=== PATIENT | male | born 1995 | race Caucasian/White ===

== ENCOUNTER 2018-09-01 09:51 | Emergency (ER) | payer BC ==
[2018-09-01] MEDS ORDERED: NS 0.9% 1000 ML** 1,000 ML IV ONE ×2 (10:10→10:16)
[2018-09-01] MEDS ORDERED: Ondansetron INJ* 2 MG/ML VIAL IV ONE (10:16)
[2018-09-01] MEDS ORDERED: Famotidine TAB* 20 MG PO ONE (10:16)
--- NOTE | 2018-09-01 10:16 | ED ---
Complex/Multi-Sys Presentation - HPI Summary HPI Summary: Pt is a 22 y/o male who presents to the ED c/o generalized weakness. He was attacked by a dog on 08/25/18 and was placed on Augmentin and scheduled to have a rabies vaccine series. Pt was drinking heavily while taking the antibiotic for several days. His last dose of Augmentin was yesterday, and his last alcoholic beverage was 2 days ago. On the plane back, he began to have numbness , nausea, shaking, and a hot and cold sensation. He denies any vomiting, CP, or SOB. Pt had to get medical attention on the plane and was told his symptoms were due to mixing Augmentin with alcohol. He then began to have generalized weakness but is still able to move all extremities. Pt denies any drug known use , but states he is unsure because he blacked out. - History Of Current Complaint Chief Complaint: EDWeakness Time Seen by Provider: 09/01/18 10:09 Hx Obtained From: Patient Onset/Duration: Gradual Onset, Lasting Days - Yesterday, Still Present Timing: Constant Aggravating Factor(s): Mixing Augmentin with alcohol Alleviating Factor(s): Nothing Associated Signs And Symptoms: Positive: Weakness, Nausea, Other - Numbness, shaking. Negative: SOB, Chest Pain, Vomiting Related History: Recent Illness - dogbite - on Augmentin - Allergies/Home Medications Allergies/Adverse Reactions: Allergies Allergy/AdvReac Type Severity Reaction Status Date / Time No Known Allergies Allergy Verified 08/25/18 16:22 PMH/Surg Hx/FS Hx/Imm Hx Endocrine/Hematology History: Denies: Hx Diabetes Cardiovascular History: Denies: Hx Hypertension - Surgical History Surgery Procedure, Year, and Place: L wrist surgery Infectious Disease History: No Infectious Disease History: Denies: Traveled Outside the [place] in Last 30 Days - Family History Known Family History: Positive: Other - R&NC - Social History Alcohol Use: Occasionally Hx Substance Use: No Substance Use Type: Reports: None Hx Tobacco Use: No Smoking Status (MU): Never Smoked Tobacco Review of Systems Positive: Chills - shaking, hot/cold sensation Negative: Chest Pain Negative: Shortness Of Breath Positive: Nausea. Negative: Vomiting Positive: Weakness - generalized, Numbness All Other Systems Reviewed And Are Negative: Yes Physical Exam - Summary Physical Exam Summary: Appearance: well appearing, mild pain distress, fatigued Skin: warm, dry, reflects adequate perfusion, healing dog bite wounds to face Head/face: normal Eyes: EOMI, SEAN ENT: mucous membranes moist Neck: supple, non-tender Respiratory: CTA, breath sounds present Cardiovascular: RRR, pulses symmetrical Abdomen: non-tender, soft Bowel Sounds: present Musculoskeletal: normal, strength/ROM intact Neuro: normal, sensory motor intact, A&Ox3 Triage Information Reviewed: Yes Vital Signs On Initial Exam: Initial Vitals Temp Pulse Resp BP Pulse Ox 97.2 F 58 18 135/84 100 09/01/18 09:56 09/01/18 09:56 09/01/18 09:56 09/01/18 09:56 09/01/18 09:56 Vital Signs Reviewed: Yes Procedures - Procedure Summary Procedure Summary: Suture removal: 1 Nylon suture removed in the left chin. Diagnostics - Vital Signs Vital Signs Temp Pulse Resp BP Pulse Ox 09/01/18 09:56 97.2 F 58 18 135/84 100 - Laboratory Result Diagrams: 09/01/18 10:45 09/01/18 10:45 Lab Statement: Any lab studies that have been ordered have been reviewed, and results considered in the medical decision making process. Re-Evaluation - Re-Evaluation First Eval Re-Evaluation Time: 11:20 Change: Improved Comment: Pt feels much better. Complex Multi-Symp Course/Dx Course Of Treatment: Nurse's notes reviewed. Patient feeling poorly, lightheaded and weak all over after several days drinking and [place]. Also has been on Augmentin for recent dog bite to the face. The wound is well- healing and a single suture was removed from it. We'll discontinue his Augmentin. He felt much better after 2 bags of IV fluids. All laboratories were benign. Discharged in good condition to follow-up with [facility]. - Diagnoses Differential Diagnoses/HQI/PQRI: Metabolic Abnormality, Sepsis Provider Diagnoses: Dehydration, Medication side effect, Visit for suture removal Discharge - Sign-Out/Discharge Documenting (check all that apply): Patient Departure - Discharge Patient Received Moderate/Deep Sedation with Procedure: No - Discharge Plan Condition: Improved Disposition: HOME Prescriptions: raNITIdine HCl [Ranitidine HCl] 150 mg PO BID PRN #30 cap PRN Reason: stomach upset Patient Education Materials: Dehydration (ED) Referrals: [facility] @ [Outside] No Primary Care Phys,NOPCP [Primary Care Provider] - Additional Instructions: Discontinue Augmentin. Stay well hydrated with Gatorade G2. Prescribed medication is to help settle here belly. Avoid alcohol. Follow-up with [facility] at . Return if worse, new symptoms or other concerns. - Billing Disposition and Condition Condition: IMPROVED Disposition: Home - Attestation Statements Document Initiated by Jeromyibjeffery: Yes Documenting Scribe: Madeline Melendez Provider For Whom Toni is Documenting (Include Credential): Cholo [place] MD Scribe Attestation: Madeline Velez, scribed for Cholo [place] MD on 09/01/18 at 1132. Scribe Documentation Reviewed: Yes Provider Attestation: The documentation as recorded by the Madeline white accurately reflects the service I personally performed and the decisions made by me, Cholo [place] MD Status of Scribe Document: Viewed
[2018-09-01 11:00] LABS: ABS Basophils 0 10^3/ul (0-0.2); ABS Eosinophils 0 10^3/ul (0-0.6); ABS Lymphocytes 1.3 10^3/ul (1.0-4.8); ABS Monocytes 0.3 10^3/ul (0-0.8); ABS Neutrophils 2.3 10^3/ul (1.5-7.7); ABS Nucleated RBC 0 10^3/ul; Eosinophil % 1.1 %; Hematocrit 42 % (36-46); Hemoglobin 15.1 g/dL (14.0-18.0); Lymphocyte % 33.4 %; Mean Corpuscular HGB Conc 36 g/dL (31-36); Mean Corpuscular Hemoglobin 32 pg (27-31); Mean Corpuscular Volume 88 fL (80-94); Mean Platelet Volume 7.6 fL (7.4-10.4); Nucleated Red Blood Cells % 0.1; Platelet Count 195 10^3/uL (150-450); Red Blood Count 4.79 10^6 /uL (4.18-5.48); Red Cell Distribution Width 12 % (10.5-15)
[2018-09-01 11:10] LABS: BUN/Creatinine Ratio 10.9 (8-20); C Reactive Protein 1.82 mg/L (<8.01); Calcium 9.1 mg/dL (8.6-10.3); EGFR African American 100.4 (>60); Potassium 3.7 mmol/L (3.5-5.0)
[2018-09-01 12:22] VITALS: BP 118/74
== END 2018-09-01 12:20 | disposition home or self-care (01) ==
LOC: ED 09:51
DX: E86.0 Dehydration (principal); R53.1 Weakness; T36.0X5A Adverse effect of penicillins, initial encounter; F10.10 Alcohol abuse, uncomplicated; Y92.9 Unspecified place or not applicable; S01.81XD Laceration without foreign body of other part of head, subsequent encounter; W54.0XXD Bitten by dog, subsequent encounter
CPT/HCPCS: 36415; 80048; 82550; 83690; 85025; 86140; 96361; 96374; 99283; A9270-GY; J2405

== ENCOUNTER 2018-09-02 12:46 | Emergency (ER) | payer BC ==
[2018-09-02] MEDS ORDERED: LORazepam TAB(*) 1 MG PO ONE (13:21)
--- NOTE | 2018-09-02 13:32 | ED ---
Psychiatric Complaint - HPI Summary HPI Summary: This patient is a 22-year-old male who is being seen for rabies vaccinations after a dog bite presenting to the ED for extreme anxiety symptoms just before receiving his rabies vaccination. He states he was at the counter and developed a feeling of severe anxiety with tingling throughout the bilateral hands. He denies any other symptoms including CPK, SOB, diaphoresis, fevers, chills, abdominal pain, nausea, diarrhea. He states he has been going through a lot recently with the concern for rabies. He states he was also in [place] over the weekend, getting back to [facility] or 3 days ago and states he may have had cocaine laced with something else. - History Of Current Complaint Chief Complaint: EDGeneral Time Seen by Provider: 09/02/18 12:59 Hx Obtained From: Patient Onset/Duration: Sudden Onset Timing: Constant Severity Initially: Severe Severity Currently: Severe Character: Anxious Aggravating Factor(s): Recent Stress Alleviating Factor(s): Nothing Associated Signs And Symptoms: Positive: Negative - Risk Factor(s) Completed Suicide Risk Factors: Negative - Allergies/Home Medications Allergies/Adverse Reactions: Allergies Allergy/AdvReac Type Severity Reaction Status Date / Time No Known Allergies Allergy Verified 09/02/18 13:02 PMH/Surg Hx/FS Hx/Imm Hx Previously Healthy: Yes Endocrine/Hematology History: Denies: Hx Diabetes Cardiovascular History: Denies: Hx Hypertension - Surgical History Surgery Procedure, Year, and Place: L wrist surgery - Immunization History Hx Pertussis Vaccination: No Immunizations Up to Date: Yes Infectious Disease History: No Infectious Disease History: Denies: Traveled Outside the [place] in Last 30 Days - Family History Known Family History: Positive: Other - R&NC - Social History Occupation: Employed Full-time, Student Lives: With Family Alcohol Use: Occasionally Hx Substance Use: No Substance Use Type: Reports: Marijuana Hx Tobacco Use: No Smoking Status (MU): Never Smoked Tobacco Review of Systems Constitutional: Negative Negative: Fever, Chills, Fatigue, Skin Diaphoresis Negative: Epistaxis, Dental Pain Negative: Palpitations, Chest Pain Genitourinary: Negative Positive: no symptoms reported, see HPI Musculoskeletal: Negative Skin: Negative Neurological: Negative Positive: Anxious All Other Systems Reviewed And Are Negative: Yes Physical Exam Triage Information Reviewed: Yes Vital Signs On Initial Exam: Initial Vitals Temp Pulse Resp BP Pulse Ox 99.4 F 71 18 133/81 100 09/02/18 12:51 09/02/18 12:51 09/02/18 12:51 09/02/18 12:51 09/02/18 12:51 Vital Signs Reviewed: Yes Appearance: Positive: Well-Appearing, Well-Nourished Skin: Positive: Warm, Skin Color Reflects Adequate Perfusion Head/Face: Positive: Normal Head/Face Inspection Eyes: Positive: EOMI, Conjunctiva Clear Neck: Positive: No Lymphadenopathy Respiratory/Lung Sounds: Positive: Clear to Auscultation, Breath Sounds Present Cardiovascular: Positive: RRR, Pulses are Symmetrical in both Upper and Lower Extremities Musculoskeletal: Positive: Normal, Strength/ROM Intact Psychiatric: Positive: Anxious AVPU Assessment: Alert Diagnostics - Vital Signs Vital Signs Temp Pulse Resp BP Pulse Ox 09/02/18 13:00 77 95 09/02/18 12:53 75 133/81 100 09/02/18 12:51 99.4 F 74 18 133/81 100 - Laboratory Lab Statement: Any lab studies that have been ordered have been reviewed, and results considered in the medical decision making process. Course/Dx - Course Course Of Treatment: Patient is evaluated for extreme anxiety symptoms. Patient appears well, nondiaphoretic, however is experiencing extreme anxiety over his rabies vaccinations. He is given 1 mg Ativan PO. He states this improved his symptoms. RabAvert 2.5 IM injection given here in the ED. He is given instructions for completing his rabies protocol. He is given a prescription for Ativan. I discussed the patient he has been under a lot of stress lately and he can use the Ativan as needed for any anxiety attack symptoms. - Differential Dx/Clinical Impression Differential Diagnosis/HQI/PQRI: Positive: Anxiety Provider Diagnosis: Anxiety Discharge - Sign-Out/Discharge Documenting (check all that apply): Patient Departure Patient Received Moderate/Deep Sedation with Procedure: No - Discharge Plan Condition: Stable Disposition: HOME Prescriptions: LORazepam TAB(*) [Ativan 1 MG TAB (*)] 1 mg PO Q8H PRN #6 tab MDD 3 PRN Reason: Anxiety Patient Education Materials: Anxiety (ED) Referrals: [facility] [Outside] No Primary Care Phys,NOPCP [Primary Care Provider] - Additional Instructions: I have given you information on anxiety Ativan up to 3 times daily as needed for breakthrough anxiety symptoms If he develop any worsening symptoms, return to the ED - Billing Disposition and Condition Condition: STABLE Disposition: Home
[2018-09-02] MEDS ORDERED: Rabies Vaccine (RabAvert)* 2.5 UNITS VIAL IM ONE (14:07)
[2018-09-02 15:30] VITALS: BP 116/80
== END 2018-09-02 15:29 | disposition home or self-care (01) ==
LOC: ED 12:46
DX: F41.9 Anxiety disorder, unspecified (principal); Z20.3 Contact with and (suspected) exposure to rabies; Z23 Encounter for immunization
CPT/HCPCS: 90471; 90675; 99283; A9270-GY